=== PATIENT | female | born 1950 | race Caucasian/White ===

== ENCOUNTER → 2016-11-14 | Outpatient (CLI) | payer OTHER | LOC: FIMAGING 12:29 | PROVIDERS: ATTEND Family Medicine | DX: Z12.31 Encounter for screening mammogram for malignant neoplasm of breast (principal) | CPT/HCPCS: G0202 ==

== ENCOUNTER 2017-07-01 12:49 | Emergency (ER) | payer OTHER ==
[2017-07-01 12:57] VITALS: PULSE 76; TEMP 98.8
--- NOTE | 2017-07-01 14:46 | EDPHY ---
General Narrative: CHIEF COMPLAINT: Fall, right shoulder pain HISTORY OF PRESENT ILLNESS: Patient complains of right posterior shoulder pain status post fall. She was exercising yesterday on an exercise ball when she fell off of it. She says she rolled 3 ft off of it striking her right posterior shoulder on a metal bench. No head injury or loss of conscious. She has had moderate to severe pain in the posterior shoulder since that time. Able to move the shoulder but with significant pain. No numbness or tingling. No midline tenderness of the back or neck. No chest pain. No abdominal pain. No shortness of breath or difficulty breathing. No other associated complaints or modifying factors. She is right-hand dominant. ESTABLISHED ORTHOPEDIST: None currently REVIEW OF SYSTEMS: Ten systems reviewed and are negative unless otherwise noted in the HPI PAST MEDICAL HISTORY: Attention deficit hyperactivity disorder, thyroid dysfunction, depression PAST SURGICAL HISTORY: No recent surgeries SOCIAL HISTORY: Nonsmoker. Retired FAMILY HISTORY: Noncontributory EXAMINATION General Appearance: Alert, no distress Cardiovascular: Symmetric radial pulses 2+. Brisk cap refill Neurological: GCS 15. A&O, sensory symmetric, strength symmetric Skin: Warm and dry, no rash. No laceration or puncture. No ecchymosis. Extremities: Moderate tenderness over the right posterior shoulder overlying the spine of the scapula. No crepitus or deformity. No AC tenderness. No humeral head tenderness. Range of motion is intact with hesitancy above 90 abduction. Neurovascular intact distally with symmetric range of motion of the elbows and wrist. Psychiatric: Mood and affect normal DIFFERENTIAL DIAGNOSES: Including but not limited to sprain, fracture, dislocation, contusion, hematoma MDM: 2:20 p.m. Mechanical fall with right scapular pain. There was a lucency on the x-ray that does clinically correlate with her pain. She is neurovascular intact distally with no signs of trauma elsewhere. I have ordered CT scan of the shoulder to delineate. Resting comfortably in no acute distress. 4:20 p.m. Case discussed with radiologist Dr. Bhat. There is a nondisplaced fracture of the scapula. No involvement of the glenoid articular surface. No other acute findings. 4:30 p.m. Patient re-evaluated. I updated her regarding the findings of the CT scan. She remains neurovascular intact in no acute distress. She brought her own sling and is already wearing this. She is neuro intact with this. Discharged home with symptomatic medications. She will follow up with a primary care physician your established physical therapist. I will also refer to Orthopedics for definitive care. ED precautions discussed. She is comfortable with this plan and discharged in stable condition SUPERVISION: Patient was independently examined, but I discussed the case with my primary supervising physician Dr. Styles. ED Precautions: Worsening pain. Erythema, edema, cyanosis, pallor, paresthesia or anesthesia. - Diagnostics Imaging Results: Imaging Impressions Shoulder X-Ray 07/01/17 12:57 Impression: 1. Artifact versus nondisplaced incomplete fracture through base of spine of scapula. If pain is centered posteriorly then consider dedicated views of the scapula versus noncontrast CT of the scapula. 2. No dislocation or AC separation. Osteoarthritis. Findings discussed with Emergency Department physician, Dr. Selene Styles at 14:09. - History Smoking Status: Never smoked - Objective Vital Signs: Initial Vital Signs Temperature (C) 98.8 F 07/01/17 12:54 Heart Rate 76 07/01/17 12:54 Respiratory Rate 16 07/01/17 12:54 Blood Pressure 124/76 H 07/01/17 12:54 O2 Sat (%) 97 07/01/17 12:54 O2 Delivery Mode Room Air Allergies/Adverse Reactions: codeine [Codeine] Adverse Reaction (Intermediate, Verified 03/17/09 14:16) GI/ABD PAIN erythromycin base [Erythromycin Base] Adverse Reaction (Intermediate, Verified 03/17/09 14:17) GI/ABD PAIN Sulfa (Sulfonamide Antibiotics) Adverse Reaction (Intermediate, Verified 14:16) GI/ABD PAIN Home Medications: Medication Instructions Recorded FISH OIL CONCENTRATE 02/23/10 LEVOTHYROXINE 02/23/10 LEXAPRO 02/23/10 LISINOPRIL 02/23/10 Ofloxacin 0.3% [Ocuflox] 1 - 2 drops LEFTEYE QID 7 Days btl 02/23/10 TRAZODONE HCL 02/23/10 Vitamin D 02/23/10 Wellbutrin 02/23/10 Hydrocodone/APAP 5/325 [[place] 1 - 2 each PO Q6 PRN #20 tab 04/20/15 5/325] Ofloxacin 0.3% [Ocuflox 0.3% (RX)] 1 drops RTEYE 5XD #1 btl 04/20/15 Departure - Departure Disposition: Home, Routine, Self-Care Clinical Impression: Fracture of scapular body Qualifiers: Encounter type: initial encounter Fracture type: closed Fracture alignment: nondisplaced Laterality: right Qualified Code(s): S42.114A - Nondisplaced fracture of body of scapula, right shoulder, initial encounter for closed fracture Condition: Good Instructions: Scapular Fracture (ED) Additional Instructions: 1. Inflammatories as discussed as needed 2. Ice to the affected area as needed 3. ED precautions as discussed 4. Follow up with Orthopedics for definitive care Referrals: Ely Park MD [Primary Care Provider] - As per Instructions Johnny Maloney MD [Medical Doctor] - As per Instructions
[2017-07-01 16:53] VITALS: BP 119/78; RESP 18; O2SAT 98
== END 2017-07-01 16:53 | disposition home or self-care (01) ==
DX: S42.114A Nondisplaced fracture of body of scapula, right shoulder, initial encounter for closed fracture (principal); W01.198A Fall on same level from slipping, tripping and stumbling with subsequent striking against other object, initial encounter; Y99.8 Other external cause status; Y93.89 Activity, other specified

== ENCOUNTER → 2017-11-20 | Outpatient (CLI) | payer OTHER | LOC: FIMAGING 09:56 | PROVIDERS: ATTEND Physician Assistant | DX: Z12.31 Encounter for screening mammogram for malignant neoplasm of breast (principal) ==

== ENCOUNTER → 2018-02-21 | Outpatient (CLI) | payer OTHER | LOC: FIMAGING 15:44 | PROVIDERS: ATTEND Family Medicine | DX: R68.84 Jaw pain (principal); W19.XXXA Unspecified fall, initial encounter ==

== ENCOUNTER 2018-06-15 09:12 | Day surgery (SDC) | payer OTHER ==
--- NOTE | 2018-06-15 09:43 | EDPHY ---
HPI/HX/ROS/PE/MDM Narrative: CHIEF COMPLAINT: Sensation of food stuck in her esophagus HPI: The patient is a 68 y/o female complaining of the sensation of food stuck in her esophagus since yesterday afternoon. She ate a baked potato yesterday and felt like it "got caught in my throat." She gestures to her lower anterior neck when describing the location of her discomfort. She tried inducing vomiting , drinking gingerale, and drinking small quantities of water without relief. When she eats or drinks anything more than small sips of water she vomits. Her discomfort is somewhat improved when lying down. She denies difficulty breathing , fever, abdominal pain, diarrhea, or other complaints. She estimates she's had five similar episodes over the last few years, but has not been evaluated specifically for this issue. She had an endoscopy in 2008 to evaluate a benign stomach tumor and she reports there were no abnormal esophageal findings at that time. REVIEW OF SYSTEMS: A comprehensive 10 system review of systems is otherwise negative aside from elements mentioned in the history of present illness. PMH: Stomach tumor and resection 2008, endoscopy 2008, ADD, thyroid disfunction , depression SOCIAL HISTORY: Nonsmoker. Retired. Lives in [place]. PHYSICAL EXAM: General:Patient is alert, in no acute distress. ENT:Eyes are normal to inspection. ENT inspection normal. Neck: Normal inspection. Full range of motion. Respiratory:No respiratory distress. Breath sounds normal bilaterally. Cardiovascular: Regular rate and rhythm. Strong peripheral pulses. Normal cap refill. Abdomen:The abdomen is nontender to palpation. There are no peritoneal signs. Back: Normal to inspection. No tenderness to palpation. Skin: Normal color. No rash. Warm and dry. Extremities: Normal appearance. Full range of motion. Neuro: Oriented x3. Normal motor function. Normal sensory function. ED Course: This is a 68 y/o female who presents with the sensation of an esophageal foreign body since yesterday. She has a history of similar events over the last few years that resolved without intervention. Her airway is intact and exam is unremarkable. Discussed levels of intervention and she would like to try treating conservatively by drinking sips of cola at this time. Patient has been able to drink soda without vomiting, but reports her symptoms are unimproved. GI paged. Consulted with Dr. Arenas GI. He will assess patient in the ED and perform endoscopy if needed. General Time Seen by Provider: 06/15/18 09:19 Initial Vital Signs: Initial Vital Signs Temperature (C) 36.4 C 06/15/18 09:12 Heart Rate 99 06/15/18 09:12 Respiratory Rate 18 06/15/18 09:12 Blood Pressure 132/93 H 06/15/18 09:12 O2 Sat (%) 99 06/15/18 09:12 O2 Delivery Mode Room Air Allergies/Adverse Reactions: codeine [Codeine] Adverse Reaction (Intermediate, Verified 03/17/09 14:16) GI/ABD PAIN erythromycin base [Erythromycin Base] Adverse Reaction (Intermediate, Verified 03/17/09 14:17) GI/ABD PAIN Sulfa (Sulfonamide Antibiotics) Adverse Reaction (Intermediate, Verified 14:16) GI/ABD PAIN Home Medications: Medication Instructions Recorded FISH OIL CONCENTRATE 02/23/10 LEVOTHYROXINE 02/23/10 LEXAPRO 02/23/10 LISINOPRIL 02/23/10 Ofloxacin 0.3% [Ocuflox] 1 - 2 drops LEFTEYE QID 7 Days btl 02/23/10 TRAZODONE HCL 02/23/10 Vitamin D 02/23/10 Wellbutrin 02/23/10 Hydrocodone/APAP 5/325 [[place] 1 - 2 each PO Q6 PRN #20 tab 04/20/15 5/325] Ofloxacin 0.3% [Ocuflox 0.3% (RX)] 1 drops RTEYE 5XD #1 btl 04/20/15 Departure - Departure Disposition: Home, Routine, Self-Care Clinical Impression: Esophageal foreign body Qualifiers: Encounter type: initial encounter Qualified Code(s): T18.108A - Unspecified foreign body in esophagus causing other injury, initial encounter Condition: Good Instructions: Esophageal Foreign Body (ED) Additional Instructions: Follow up with GI in the next week. Return to the ED for persistent vomiting, inability to keep down water, difficulty breathing, or other worsening of condition. Referrals: Ibeth Forde PA [Primary Care Provider] - As per Instructions Shanta Geiger MD [Medical Doctor] - As per Instructions Report Scribed for: Terry Ba Report Scribed by: Nguyen Martinez Date of Report: 12/29/18 Time of Report: 09:43 Physician Review and Approval Statement: Portions of this note were transcribed by an ED scribe. I personally performed the history, physical exam, and medical decision making; and confirm the accuracy of the information in the transcribed note.
[2018-06-15] MEDS ORDERED: MIDAZOLAM 2 MG/2 ML VIAL ONE (14:15)
[2018-06-15] MEDS ORDERED: fentaNYL 100 MCG/2 ML INJ ONE (14:15)
--- NOTE | 2018-06-15 14:35 | GIREPORT ---
[facility] Surgical Services - Endoscopy Department Patient Name: Madonna Keller Procedure Date: 06/15/2018 2:12 PM Patient Type: Emergency Department Attending MD/ ER Physician: Shanta Geiger MD Procedure: Upper GI endoscopy Indications: Foreign body in the esophagus Providers: Shanta Geiger MD Medicines: Fentanyl 100 micrograms IV, Midazolam 4 mg IV Complications: No immediate complications. Description of Procedure: After obtaining informed consent, the endoscope was passed under direct vision. Throughout the procedure, the patient's blood pressure, pulse, and oxygen saturations were monitored continuously. The Endoscope was intro duced through the mouth, and advanced to the third part of duodenum. The uppe r GI endoscopy was accomplished without difficulty. The patient tolerated th e procedure well. Findings: Food was found in the middle third of the esophagus. Removal of food wa s accomplished. A deformity was found in the cardia. A medium amount of food (residue) was found in the gastric body. The examined duodenum was normal. Estimated Blood Loss: Estimated blood loss: none. Post Op Diagnosis: - Food in the middle third of the esophagus. Removal was successful. - Deformity in the cardia. - A medium amount of food (residue) in the stomach. - Normal examined duodenum. Recommendation: - Written discharge instructions were provided to the patient. - The signs and symptoms of potential delayed complications were discus sed with the patient. - Patient has a contact number available for emergencies. - Return to normal activities tomorrow. - Resume previous diet. - Continue present medications. - Repeat upper endoscopy in 1 month for retreatment. Attending Participation: I personally performed the entire procedure. Shanta Geiger MD Shanta Geiger MD 06/15/2018 2:35:12 PM This report has been signed electronicallyDaus MD Fely Number of Addenda: 0 Note Initiated On: 06/15/2018 2:12 PM [email or web address]
--- NOTE | 2018-06-15 15:04 | GCON ---
REFERRING PHYSICIAN: Terry Ba MD REASON FOR CONSULTATION: Esophageal foreign body/food impaction. HISTORY OF PRESENT ILLNESS: The patient is a pleasant 68-year-old female with a history of intermitt ent solid food dysphagia that has been typically washable, who began having symptoms of food impactio n yesterday after her late lunch. She reports she had a baked potato at approximately 3 p.m. yesterd ay and has had a difficult time swallowing, tolerating oral secretions, drinking, etc., since that ti me. She was able to sleep through the night so long as she laid flat, but when she woke this morning , she was unable to eat, and so came to the emergency room for evaluation. She has no recent history of heartburn or indigestion. She denies weight loss. She reports no nausea or vomiting. PAST MEDICAL HISTORY: Includes a stomach tumor resection in 2008, as well as endoscopy at that time. She has underlying ADD, as well as hypertension and depression. SOCIAL HISTORY: She does not smoke. She is retired. She lives in [place]. FAMILY HISTORY: Negative for stomach cancer. REVIEW OF SYSTEMS: A complete 10-system review was undertaken with the patient and is negative, exce pt for those details described in the history of present illness. PHYSICAL EXAM: GENERAL: This is a well-developed female in no apparent distress. HEENT: Her pupil s are equal, round, reactive to light and accommodation. Sclerae nonicteric. Oropharynx is clear. NECK: Supple without lymphadenopathy. HEART: Regular without murmur. ABDOMEN: Soft, nontender, w ith normoactive bowel sounds. EXTREMITIES: Free of cyanosis, clubbing, and edema. NEURO: Grossly nonfocal. SKIN: Warm and dry. ALLERGIES: Codeine, erythromycin, and sulfa. OUTPATIENT MEDICINES: Fish oil, levothyroxine, Lexapro, lisinopril, ofloxacin, trazodone, [place], and Wellbutrin. IMPRESSION/RECOMMENDATIONS: The patient has a food impaction and recent history of solid food dyspha shahid. She is unable to tolerate her secretions. We will plan for an urgent upper endoscopy to resolv e her food impaction. Pending the results of the endoscopy, we will need to consider additional work up or management. This might include imaging, followup endoscopy, etc. /[id number]/MODL
[2018-06-15 15:13] VITALS: BP 144/88
== END 2018-06-15 15:42 | disposition home or self-care (01) ==
LOC: FSGY 14:04
PROVIDERS: ATTEND Internal Medicine Gastroenterology
PROC: 0DC28ZZ Extirpation of Matter from Middle Esophagus, Via Natural or Artificial Opening Endoscopic (ICD-10-PCS; principal; 2018-06-15 14:00)
DX: T18.108A Unspecified foreign body in esophagus causing other injury, initial encounter (principal); F32.9 Major depressive disorder, single episode, unspecified
CPT/HCPCS: J2250; J3010

== ENCOUNTER 2018-08-07 06:04 | Observation (INO) | payer OTHER ==
[2018-08-07] MEDS ORDERED: BENZOCAINE UNIT DOSE SPRAY HURRICAINE MM ONE ×2 (06:27→06:28)
[2018-08-07 07:05] LABS: PLATELET COUNT 258 10^3/uL (150-400)
[2018-08-07] MEDS ORDERED: IOPAMIDOL (ISOVUE-300) 100 ML BTL ONE (07:16)
--- NOTE | 2018-08-07 07:22 | EDPHY ---
H & P Stated Complaint: throat pain, unable to swallow after endoscopy yesterday - Personal History Tetanus Vaccine Date: 2011 - Medical/Surgical History Hx Asthma: No Hx Chronic Respiratory Disease: No Hx Diabetes: No Hx Cardiac Disease: No Hx Renal Disease: No Hx Cirrhosis: No Hx Alcoholism: No Hx HIV/AIDS: No Hx Splenectomy or Spleen Trauma: No Other PMH: Hypothyroidism, 4 back surgeries. Depression. Bowel obstruction. Cholecystectomy. Appendectomy. Benign abdominal tumor resection - Social History Smoking Status: Never smoked Time Seen by Provider: 08/07/18 06:21 HPI/ROS: Chief Complaint: Throat pain HPI: 68-year-old woman with a history of esophageal stricture an esophageal foreign bodies in the past is presenting with severe pain in her throat. Patient had an EGD performed yesterday by Dr. Geiger. At that time she did have some further dilatation done. After going home she developed worsening pain in the back of her throat. Pain is been simply worse over the course the night. She has not been able to swallow secondary to pain. No difficulty breathing. No fevers or chills. No cough. No nausea or vomiting. ROS: 10 systems were reviewed and were negative except those elements noted in the HPI. Social History: No smoking, no alcohol, no recreational drug use Family History: non-contributory Physical Exam: Gen: Awake, Alert, very uncomfortable appearing HEENT: Nose: no rhinorrhea Eyes: PERRLA, EOMI Mouth: Moist mucosa no oral pharyngeal erythema, edema or exudate. Neck: Supple, no JVD, no palpable masses, no lymphadenopathy. No subcutaneous emphysema. No fluctuance Chest: nontender, lungs clear to auscultation Heart: S1, S2 normal, no murmur Abd: Soft, non-tender, no guarding Back: no CVA tenderness, no midline tenderness Ext: no edema, non-tender Skin: no rash Neuro: CN II-XII intact, Sensation grossly intact, Strength 5/5 in bilateral upper and lower extremities (Jacob Grace) Constitutional: Initial Vital Signs Temperature (C) 36.3 C 08/07/18 06:08 Heart Rate 95 08/07/18 06:08 Respiratory Rate 20 08/07/18 06:08 Blood Pressure 111/92 H 08/07/18 06:08 O2 Sat (%) 95 08/07/18 06:08 O2 Delivery Mode Room Air Allergies/Adverse Reactions: codeine [Codeine] Adverse Reaction (Intermediate, Verified 08/07/18 06:08) GI/ABD PAIN erythromycin base [Erythromycin Base] Adverse Reaction (Intermediate, Verified 08/07/18 06:08) GI/ABD PAIN Sulfa (Sulfonamide Antibiotics) Adverse Reaction (Intermediate, Verified 06:08) GI/ABD PAIN Home Medications: Medication Instructions Recorded FISH OIL CONCENTRATE 02/23/10 LEVOTHYROXINE 02/23/10 LEXAPRO 02/23/10 LISINOPRIL 02/23/10 Ofloxacin 0.3% [Ocuflox] 1 - 2 drops LEFTEYE QID 7 Days btl 02/23/10 TRAZODONE HCL 02/23/10 Vitamin D 02/23/10 Wellbutrin 02/23/10 Hydrocodone/APAP 5/325 [[place] 1 - 2 each PO Q6 PRN #20 tab 04/20/15 5/325] Ofloxacin 0.3% [Ocuflox 0.3% (RX)] 1 drops RTEYE 5XD #1 btl 04/20/15 Medical Decision Making - Diagnostics Imaging Results: Imaging Impressions Chest CT 08/07/18 06:50 Impression: 1. Fullness of the airway just above the vocal cords with effacement. This may represent postprocedural changes but would recommend direct inspection area no definite underlying abscess is seen at this time. 2. Esophageal heterogeneity and thickening, likely postprocedural. There is also edema within the lower neck, probably reactive. 3. Nonenlarged cervical lymph nodes, some of which are hyperenhancing, favored to be reactive/inflammatory. 4. Negative for pneumomediastinum or subcutaneous air. Findings and recommendations discussed with Dr. Tamayo at 845 hour, 08/07/2018. Neck CT 08/07/18 06:50 Impression: 1. Fullness of the airway just above the vocal cords with effacement. This may represent postprocedural changes but would recommend direct inspection area no definite underlying abscess is seen at this time. 2. Esophageal heterogeneity and thickening, likely postprocedural. There is also edema within the lower neck, probably reactive. 3. Nonenlarged cervical lymph nodes, some of which are hyperenhancing, favored to be reactive/inflammatory. 4. Negative for pneumomediastinum or subcutaneous air. Findings and recommendations discussed with Dr. Tamayo at 845 hour, 08/07/2018. ED Course/Re-evaluation: 68-year-old woman with severe throat pain after EGD yesterday. I have administered hurricane spray without any relief. Given the severity the patient 's pain in the recent EGD I think she needs imaging of her neck and chest to rule out esophageal perforation or other abnormality. IV is been placed. Laboratories have been drawn. CT scans have been ordered. Patient signed out to Dr. Tamayo pending results of the CT scan. (Jacob Grace) I saw the patient at 7:15 a.m. And she was awaiting CT. 8:20 a.m. she is back from CT complaining of bilateral neck pain. No drooling or stridor. She is having trouble swallowing. She is spitting some saliva. She had already had her a cane spray without relief. She is given fentanyl IV I consulted discussed case with Dr. Da Silva, hospitalist who agrees to the admission I consulted discussed case with Dr. Vidya Ladd for GI. Decadron IV I consulted discussed case with Ariana Le for ENT who will see the patient. She agrees with the Decadron. (Antonio Tamayo) Differential Diagnosis: This appears to be post endoscopy P inflammation. No abscess. No evidence for perforation (Antonio Tamayo) - Data Points Laboratory Results: Laboratory Results 08/07/18 06:54 08/07/18 06:54 08/07/18 08/07/18 06:54 06:54 WBC 8.67 10^3/uL 10^3/uL (3.80-9.50) RBC 4.73 10^6/uL 10^6/uL (4.18-5.33) Hgb 14.1 g/dL g/dL (12.6-16.3) Hct 41.5 % % (38.0-47.0) MCV 87.7 fL fL (81.5-99.8) MCH 29.8 pg pg (27.9-34.1) MCHC 34.0 g/dL g/dL (32.4-36.7) RDW 13.4 % % (11.5-15.2) Plt Count 258 10^3/uL 10^3/uL (150-400) MPV 8.7 fL fL (8.7-11.7) Neut % (Auto) 75.6 % H % (39.3-74.2) Lymph % (Auto) 10.3 % L % (15.0-45.0) [place] % (Auto) 10.7 % % (4.5-13.0) Eos % (Auto) 2.5 % % (0.6-7.6) Baso % (Auto) 0.7 % % (0.3-1.7) Nucleat RBC Rel Count 0.0 % % (0.0-0.2) Absolute Neuts (auto) 6.55 10^3/uL H 10^3/uL (1.70-6.50) Absolute Lymphs (auto) 0.89 10^3/uL L 10^3/uL (1.00-3.00) Absolute Monos (auto) 0.93 10^3/uL H 10^3/uL (0.30-0.80) Absolute Eos (auto) 0.22 10^3/uL 10^3/uL (0.03-0.40) Absolute Basos (auto) 0.06 10^3/uL 10^3/uL (0.02-0.10) Absolute Nucleated RBC 0.00 10^3/uL 10^3/uL (0-0.01) Immature Gran % 0.2 % % (0.0-1.1) Immature Gran # 0.02 10^3/uL 10^3/uL (0.00-0.10) Sodium 134 mEq/L L mEq/L (135-145) Potassium 4.1 mEq/L mEq/L (3.5-5.2) Chloride 103 mEq/L mEq/L (97-110) Carbon Dioxide 26 mEq/l mEq/l (22-31) Anion Gap 5 mEq/L L mEq/L (6-14) BUN 13 mg/dL mg/dL (7-23) Creatinine 0.7 mg/dL mg/dL (0.6-1.0) Estimated GFR > 60 Glucose 105 mg/dL H mg/dL (70-100) Calcium 9.3 mg/dL mg/dL (8.5-10.4) Medications Given: Discontinued Medications Benzocaine (Hurricaine [place]) 1 each MM EDNOW ONE Stop: 08/07/18 06:29 Last Admin: 08/07/18 06:29 Dose: 1 each Fentanyl (Sublimaze) 50 mcg IVP EDNOW ONE Stop: 08/07/18 08:29 Last Admin: 08/07/18 08:35 Dose: 50 mcg Sodium Chloride (Ns) 1,000 mls @ 0 mls/hr IV ONCE ONE; Wide Open PRN Reason: Protocol Stop: 08/07/18 08:19 Last Admin: 08/07/18 08:20 Dose: 1,000 mls Departure - Departure Disposition: [facility] Inpatient Acute Clinical Impression: Throat swelling Condition: Good Referrals: Ibeth Forde PA [Primary Care Provider] - As per Instructions
[2018-08-07] MEDS ORDERED: NS 1,000 ML IV ONE (08:18)
[2018-08-07] MEDS ORDERED: fentaNYL 100 MCG/2 ML INJ IVP ONE (08:28)
[2018-08-07] MEDS ORDERED: DEXAMETHASONE 10 MG/ML VIAL IVP ONE (09:31)
--- NOTE | 2018-08-07 10:31 | GCON ---
[f rep st] CONSULTATION HISTORY OF PRESENT ILLNESS: Patient is a 68-year-old female who underwent an EGD yesterday. She pre sented to the emergency room with significant sore throat and difficulty swallowing. She is able to breathe. She denies any otalgia. PAST MEDICAL HISTORY: Significant for hypothyroidism, 4 back surgeries, depression, bowel obstructio n, cholecystectomy, appendectomy, and benign abdominal tumor resection. SOCIAL HISTORY: Nonsmoker. PHYSICAL EXAMINATION: GENERAL: Patient is alert and orientated and lying comfortably in bed, in no acute distress. No stridor is appreciated. HEENT: Head: Atraumatic, normocephalic. Nose is clear . Oropharynx was clear. NECK: Supple. DATA: Fiberoptic laryngoscopy performed at bedside revealed significant edema of her aryepiglottic f olds, worse on the right than on the left. Review of the CT scan of the neck and chest reveals no evidence of perforations. It does reveal some fullness at the level of the cords. ASSESSMENT AND PLAN: Patient with significant edematous reaction of her aryepiglottic folds after an esophagogastroduodenoscopy yesterday. She is being admitted to the hospital. They have already giv en her a dose of 10 mg of Decadron. I will put an order in for 10 mg of Decadron to be given every 1 2 hours. I will see the patient tomorrow on to check on the edema and see if she is able to be disch arged. /[id number]/MODL
[2018-08-07] MEDS ORDERED: ONDANSETRON 4 MG/2 ML VIAL IVP PRN (11:45)
[2018-08-07] MEDS ORDERED: ONDANSETRON DISINTEGRATING 4 MG TAB PO PRN (11:45)
--- NOTE | 2018-08-07 13:04 | PDGENHP ---
History and Physical - Chief Complaint trouble swallowing - History of Present Illness 68yo F with history of esophageal strictures requiring dilation presents with painful swallowing. She had EGD diltation yesterday by Dr Geiger. This was uneventful except she was having more trouble swallowing afterwards than last time she had a dilation (05/2018). This progressed throughout yesterday evening prompting her to come to the ED this morning. She denies trouble breathing, drooling, fevers, chills, tongue or lip swelling. This has not occurred before. In the ED, CT of her chest and neck showed fullness of the airway just above the vocal cords with effacement. ENT was consulted and performed direct laryngoscopy which showed significant edema of her aryepiglottic folds right greater than left. She was given a dose of dexamethasone and is being admitted for additional monitoring. History Information - Allergies/Home Medication List Allergies/Adverse Reactions: codeine [Codeine] Allergy (Intermediate, Verified 08/07/18 12:39) GI/ABD PAIN erythromycin base [Erythromycin Base] Allergy (Intermediate, Verified 08/07/18 12:39) GI/ABD PAIN Sulfa (Sulfonamide Antibiotics) Allergy (Intermediate, Verified 08/07/18 12:39) GI/ABD PAIN Home Medications: Cholecalciferol Vit D3 [Vitamin D3 (*)] 1,000 units PO DAILY 02/23/10 [Last Taken Unknown] Levothyroxine [Synthroid 100 mcg (*)] 100 mcg PO DAILY06 02/23/10 [Last Taken ] Lisinopril [Zestril 5 mg (*)] 5 mg PO BID 02/23/10 [Last Taken 08/06/18 21:00] buPROPion XL [Wellbutrin Xl] 300 mg PO DAILY 02/23/10 [Last Taken 08/05/18] traZODone [traZODONE 100MG (*)] 100 mg PO HS 02/23/10 [Last Taken 08/06/18] Calcium Carbonate [Oyster Shell Calcium 500 mg (*)] 500 mg PO DAILY 08/07/18 [ Last Taken Unknown] Citalopram Hydrobromide [Celexa] 40 mg PO HS 08/07/18 [Last Taken 08/06/18] Oxybutynin Chloride 5 mg PO BID 08/07/18 [Last Taken 08/06/18 21:00] buPROPion XL [Wellbutrin Xl] 300 mg PO DAILY 08/07/18 [Last Taken 08/05/18] methYLPHENIDATE HCL [Ritalin 10mg (*)] 15 mg PO BID@09,12 08/07/18 [Last Taken 08/05/18] I have personally reviewed and updated: family history, medical history, social history, surgical history - Past Medical History Additional medical history: depression/anxiety, ADD, hypothyroidism, esophageal strictures, HTN, overactive bladder, insomnia - Surgical History Additional surgical history: esophageal dilations - Family History Positive for: non-pertinent - Social History Smoking Status: Never smoked Alcohol Use: None Drug Use: None Review of Systems Review of Systems: ROS: 10pt was reviewed & negative except for what was stated in HPI & below Physical Exam Physical Exam: Temp Pulse Resp BP Pulse Ox 37 C 82 18 143/90 H 95 08/07/18 08:00 08/07/18 12:00 08/07/18 12:00 08/07/18 12:00 08/07/18 12:00 Constitutional: no apparent distress Eyes: PERRL, anicteric sclera, EOMI Ears, Nose, Mouth, Throat: moist mucous membranes, other (erythema of posterior oropharynx) Cardiovascular: regular rate and rhythym, no murmur, rub, or gallop, No edema Respiratory: no respiratory distress, no rales or rhonchi, clear to auscultation , other (no stridor) Gastrointestinal: normoactive bowel sounds, soft, non-tender abdomen, no palpable masses Genitourinary: no bladder fullness, no bladder tenderness Skin: warm, normal color, no rashes or abrasions, no fluctuance, no induration, No mottled Musculoskeletal: full muscle strength, no muscle tenderness, normal joint ROM, no joint effusions Neurologic: AAOx3 Psychiatric: interacting appropriately, anxious Lab Data & Imaging Review 08/07/18 06:54 08/07/18 06:54 WBC 8.67 10^3/uL (3.80-9.50) 08/07/18 06:54 RBC 4.73 10^6/uL (4.18-5.33) 08/07/18 06:54 Hgb 14.1 g/dL (12.6-16.3) 08/07/18 06:54 Hct 41.5 % (38.0-47.0) 08/07/18 06:54 MCV 87.7 fL (81.5-99.8) 08/07/18 06:54 MCH 29.8 pg (27.9-34.1) 08/07/18 06:54 MCHC 34.0 g/dL (32.4-36.7) 08/07/18 06:54 RDW 13.4 % (11.5-15.2) 08/07/18 06:54 Plt Count 258 10^3/uL (150-400) 08/07/18 06:54 MPV 8.7 fL (8.7-11.7) 08/07/18 06:54 Neut % (Auto) 75.6 % (39.3-74.2) H 08/07/18 06:54 Lymph % (Auto) 10.3 % (15.0-45.0) L 08/07/18 06:54 Bradley % (Auto) 10.7 % (4.5-13.0) 08/07/18 06:54 Eos % (Auto) 2.5 % (0.6-7.6) 08/07/18 06:54 Baso % (Auto) 0.7 % (0.3-1.7) 08/07/18 06:54 Nucleat RBC Rel Count 0.0 % (0.0-0.2) 08/07/18 06:54 Absolute Neuts (auto) 6.55 10^3/uL (1.70-6.50) H 08/07/18 06:54 Absolute Lymphs (auto) 0.89 10^3/uL (1.00-3.00) L 08/07/18 06:54 Absolute Monos (auto) 0.93 10^3/uL (0.30-0.80) H 08/07/18 06:54 Absolute Eos (auto) 0.22 10^3/uL (0.03-0.40) 08/07/18 06:54 Absolute Basos (auto) 0.06 10^3/uL (0.02-0.10) 08/07/18 06:54 Absolute Nucleated RBC 0.00 10^3/uL (0-0.01) 08/07/18 06:54 Immature Gran % 0.2 % (0.0-1.1) 08/07/18 06:54 Immature Gran # 0.02 10^3/uL (0.00-0.10) 08/07/18 06:54 Sodium 134 mEq/L (135-145) L 08/07/18 06:54 Potassium 4.1 mEq/L (3.5-5.2) 08/07/18 06:54 Chloride 103 mEq/L (97-110) 08/07/18 06:54 Carbon Dioxide 26 mEq/l (22-31) 08/07/18 06:54 Anion Gap 5 mEq/L (6-14) L 08/07/18 06:54 BUN 13 mg/dL (7-23) 08/07/18 06:54 Creatinine 0.7 mg/dL (0.6-1.0) 08/07/18 06:54 Estimated GFR > 60 08/07/18 06:54 Glucose 105 mg/dL (70-100) H 08/07/18 06:54 Calcium 9.3 mg/dL (8.5-10.4) 08/07/18 06:54 Assessment & Plan Assessment: 68yo F with history of esophageal strictures requiring dilation presents with painful swallowing found to have aryepiglottic swelling after esophageal dilation. Plan: 1. Odynophagia: Found to have significant edema of aryepiglottic folds on direct laryngoscopy. No evidence of airway compromise. This is likely a complication of recent esophageal dilation. - Dexamethasone 10mg IV BID - Monitor airway in step down overnight - ENT following. Plan to repeat laryngoscopy tomorrow AM, if improved can likely discharge to home 2. Insomnia: Continue home trazodone. Discussed that steroids may worsen. 3. HTN: BP a bit up in setting of pain. Continue home lisinopril. 4. Depression/anxiety: Home meds. 5. Hypothyroid: Home LT4 replacement. VTE ppx: SCDs Code: full Diet: regular Dispo: Admit under observation
[2018-08-07] MEDS ORDERED: LORazepam 0.5 MG TAB PO PRN (15:35)
[2018-08-07] MEDS: ACETAMINOPHEN 325 MG TAB PO PRN (18:46)
[2018-08-07] MEDS ORDERED: traZODone 100 MG TAB PO SCH (21:00)
[2018-08-07] MEDS ORDERED: CITALOPRAM 20 MG TAB PO SCH (21:00)
[2018-08-07] MEDS: DEXAMETHASONE 4 MG/ML VIAL IVP SCH (21:56)
[2018-08-07] MEDS: LISINOPRIL 5 MG TAB PO SCH (21:56)
[2018-08-07] MEDS: OXYBUTYNIN CHLORIDE 5 MG TAB PO SCH (21:57)
[2018-08-08] MEDS: ACETAMINOPHEN 325 MG TAB PO PRN (04:22)
[2018-08-08] MEDS ORDERED: LEVOTHYROXINE 100 MCG TAB PO SCH (06:00)
[2018-08-08] MEDS: OXYBUTYNIN CHLORIDE 5 MG TAB PO SCH (07:48)
[2018-08-08] MEDS: DEXAMETHASONE 4 MG/ML VIAL IVP SCH (07:49)
[2018-08-08] MEDS: LISINOPRIL 5 MG TAB PO SCH (07:49)
[2018-08-08 08:31] VITALS: BP 119/73
[2018-08-08] MEDS ORDERED: buPROPion XL 150 MG TAB PO SCH ×2 (09:00)
--- NOTE | 2018-08-08 10:10 | SOAPPROG ---
SOAP Progress Note Assessment/Plan: pt with edematous larynx after EGD. She has responded welltos teroids and voice is much clearer. able to toelrate soft foods. laryngoscopy reveals resolution of edema, cords mobile. 95% better. Plan: pt wit resolving edema. Clear for discharge. I have written her for decadron 8mg x 2 days , 4mg x 2 days. F/u prn. 08/08/18 10:08 Objective: Vital Signs Temp Pulse Resp BP Pulse Ox 36.7 C 77 18 119/73 98 08/08/18 08:00 08/08/18 08:00 08/08/18 08:00 08/08/18 08:00 08/08/18 08:00 08/07/18 08/08/18 08/09/18 05:59 05:59 05:59 Intake Total 500 Balance 500 - Pending Discharge Pending Discharge Within 24 Hours: Yes Pending Discharge Date: 08/09/18 Pending Discharge Time: 11:00 ICD10 Worksheet Patient Problems: Problems Problem Status Onset Throat swelling Acute Esophageal foreign body Acute
--- NOTE | 2018-08-08 14:12 | PDDCSUM ---
Discharge Summary Discharge Summary: Discharge diagnosis Post endoscopy area epiglottic hold swelling and edema Hypothyroid Depression Patient was admitted for area epiglottic swelling secondary to an endoscopy that she had had the day before. She presented with difficulty swallowing and odynophagia. A CT scan in the emergency room showed swelling of her aryepiglottic folds. ENT was consulted who performed direct laryngoscopy which did show some edema and swelling of her epiglottic folds. She was started on Decadron and monitored overnight. By day 2 she had had substantial decrease in her swelling was able to talk normally with less pain. ENT followed up and wrote for a Decadron taper and cleared her for discharge. She had no oxygen requirement and was able to tolerate a regular diet with no problems. She was discharged home in good condition to follow up with her primary care physician. Disposition Discharge home New medications Decadron taper I spent over 30 min on the discharge of this patient
--- NOTE | 2018-08-09 13:57 | PQFORM ---
PHYSICIAN QUERY FORM Needs Your Response This query form is being sent to you to assure this patient record is coded properly. Please respond to the question below: [employer] QUESTION: Dear Ms. Le, In your consultation note of you document in the Data field of your report that a Fiberoptic laryngoscopy was performed at bedside. In addition, in your SOAP Progress note of you document "laryngoscopy reveals resolution of edema, cords mobile." A procedure note is required for minimally invasive, noninvasive and bedside procedures. If sedation is used a separate sedation note is required. Based on your medical judgment of the clinical indicators outlined above, if a procedure was done during the encounters of 08/07 and/or 08/08 could you please document in the patient's record a description of the procedure? Thanks for your help! Warm regards, EMILIE Sam, DIRECTOR [employer], [employer] Consultant INSTRUCTIONS FOR RESPONSE: Answer question by clicking on the "Edit Document" button. Move cursor to area below the stars. When complete, hit "Save." Click on the "Sign" button, then click "Sign" again. Type in your PIN and hit "Enter." MTDD
== END 2018-08-08 13:05 | disposition home or self-care (01) ==
LOC: INTOOBSV 09:35 → F2N 15:12
PROVIDERS: ADMIT Internal Medicine; ATTEND Internal Medicine
PROC: 0CJS8ZZ Inspection of Larynx, Via Natural or Artificial Opening Endoscopic (ICD-10-PCS; principal; 2018-08-07)
DX: T81.89XA Other complications of procedures, not elsewhere classified, initial encounter (principal); R22.1 Localized swelling, mass and lump, neck; R07.0 Pain in throat; E03.9 Hypothyroidism, unspecified; F32.9 Major depressive disorder, single episode, unspecified; G47.00 Insomnia, unspecified; F41.9 Anxiety disorder, unspecified; I10 Essential (primary) hypertension; Z98.890 Other specified postprocedural states
CPT/HCPCS: 31575; 70491; 71260; G0378; J1100; J3010; Q9967; 96374

== ENCOUNTER → 2018-11-21 | Outpatient (CLI) | payer OTHER | LOC: FIMAGING 08:49 ==